=== PATIENT | female | born 1965 | race American Indian/Alaskan Native ===

== ENCOUNTER 2016-08-21 14:21 | Emergency (ER) | payer OTHER ==
[2016-08-21 14:45] VITALS: BP 127/76
[2016-08-21] MEDS ORDERED: FLEXERIL PO ONE (15:47)
[2016-08-21] MEDS ORDERED: TORADOL IM ONE (15:47)
[2016-08-21] MEDS ORDERED: NORCO 7.5/325 PO ONE (15:47)
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
== END 2016-08-21 17:24 | disposition home or self-care (01) ==
LOC: ED 14:21
DX: M25.561 Pain in right knee (principal); M25.562 Pain in left knee; F17.200 Nicotine dependence, unspecified, uncomplicated; V43.52XA Car driver injured in collision with other type car in traffic accident, initial encounter; W22.10XA Striking against or struck by unspecified automobile airbag, initial encounter; Y93.89 Activity, other specified; Y99.8 Other external cause status; Y92.89 Other specified places as the place of occurrence of the external cause
CPT/HCPCS: 72040; 72100; 73562; 96372; 99283; J1885